=== PATIENT | male | born 1960 | race Caucasian/White ===

== ENCOUNTER 2016-12-01 15:21 | Emergency (ER) | payer OTHER ==
--- NOTE | 2016-12-01 16:49 | CT ---
Name: RUTHIE MONTANO Exam: Noncontrast renal stone CT Comparison: None Clinical History: Left flank and hip pain Procedure: Helical CT using multidetector technique was applied to the abdomen and pelvis without contrast. Sagittal, axial and coronal reconstructions were obtained. An automated dose reduction technique was used to minimize patient radiation dose. Findings: CT abdomen (noncontrast): Lung bases are clear. Heart is nonenlarged. There is no pericardial effusion. Noncontrast images of the liver, gallbladder, pancreas, spleen, adrenal glands, kidneys, aorta, IVC, portal vein, stomach, small bowel and colon are within normal limits. Normal appendix is retrocecal. Atherosclerosis is identified. There is at least bilateral foraminal narrowing at L5-S1 due to disc and facet disease. CT pelvis (noncontrast): Bladder, prostate and seminal vesicles are normal. Small bowel and colon are normal. Atherosclerosis is identified. There is no free air, free fluid or suspicious adenopathy. Bones are within normal limits. In particular, there is no suspicious abnormality with respect to the left hip. Impression: 1. No genitourinary calcification or obstruction 2. Grossly normal CT appearance of the left hip 3. Normal appendix. No bowel obstruction. 4. Mild bilateral foraminal larynx at L5-S1 Note: The above report was uploaded to [facility]'s electronic medical records system at 1644 hours.
== END 2016-12-01 17:53 | disposition home or self-care (01) ==
LOC: ED 15:21
DX: M25.552 Pain in left hip (principal); J44.9 Chronic obstructive pulmonary disease, unspecified; F17.210 Nicotine dependence, cigarettes, uncomplicated; E11.9 Type 2 diabetes mellitus without complications; Z79.4 Long term (current) use of insulin; Z79.84 Long term (current) use of oral hypoglycemic drugs